=== PATIENT | male | born 1970 | race Caucasian/White ===

== ENCOUNTER 2020-11-19 13:42 | Emergency (ER) | payer BC, OTHER ==
[~2020-11-19 13:42] MED LIST: CIPR500T78 PO; DIPH25CA65 PO; HYDR-91 PO; IBUP-1773 PO; LEVO250T7 PO; MULT-974 PO; NITR-33 PO; OXYC-12 PO; OXYC1CAP3 PO; PHEN200T27 PO; TAMS0.4C9 PO; TMSL.4C PO
--- NOTE | 2020-11-19 14:39 | ED Integumentary General ---
General Chief Complaint: Laceration Stated Complaint: LT ARM/FACE/CHEST LAC Nursing Triage Note: Pt presents with 3 lacerations to his chest from an angle track grinder operator. Pt has a superficial cut to his left arm and superficial cuts to the right side of his face. Bleeding controlled on arrival History of Present Illness Date Seen by Provider: Nov 19, 2020 Time Seen by Provider: 13:50 Initial Comments 50-year-old male presents with 3 lacerations over his chest, a superficial laceration to the right of his face and abrasion to his left arm. Patient was using an angle track grinder operator that got away from him and hit him across the chest wall face and arm. The lacerations on the chest are approximately 2-1/2 cm, 6 and 5 cm. They go through the subcutaneous tissue but not to the muscle or fascia. He suffered no other injuries. He is not sure when his last tetanus was but is greater than 5 years. No other systemic complaints. Allergies and Home Medications Allergies Coded Allergies: No Known Drug Allergies (Unverified , 05/27/13) Home Medications Diphenhydramine Hcl 25 Mg Capsule, 50 MG PO DAILY, (Reported) TAKE 2 (25MG) TABS Levofloxacin 250 Mg Tab, 1 EACH PO DAILY Prescribed by: TACHO WOODRUFF on 08/31/14835 Multivitamin 1 Each Tablet, 1 EACH PO DAILY, (Reported) Oxycodone Hcl/Acetaminophen 1 Each Tablet, 1-2 EACH PO Q4-6H PRN PRN for PAIN, (Reported) PRN PAIN Phenazopyridine Hcl 200 Mg Tablet, 1 EACH PO TID PRN Prescribed by: TACHO WOODRUFF on 08/31/14835 Tamsulosin HCl 0.4 Mg Cap.er.24h, 0.4 MG PO DAILY, (Reported) Patient Home Medication List Home Medication List Reviewed: Yes Review of Systems Review of Systems Constitutional: no symptoms reported EENTM: see HPI Respiratory: no symptoms reported Cardiovascular: no symptoms reported Gastrointestinal: no symptoms reported Genitourinary: no symptoms reported Musculoskeletal: see HPI Skin: see HPI Psychiatric/Neurological: No Symptoms Reported Endocrine: No Symptoms Reported Past Icludms-Oahelp-Hwihwq Hx Patient Social History Tobacco Use?: Yes Tobacco type used: Cigarettes Smoking Status: Current Someday Smoker Substance use?: No Alcohol Use?: No Pt feels they are or have been: No Past Medical History Kidney Stones Arthritis Physical Exam Vital Signs Vital Signs - First Documented 11/19/20 13:47 Pulse 96 Resp 18 B/P (MAP) 146/95 (112) Pulse Ox 98 O2 Delivery Room Air Capillary Refill : Less Than 3 Seconds General Appearance: no apparent distress HEENT: PERRL/EOMI Neck: non-tender, full range of motion Cardiovascular: normal peripheral pulses Respiratory: chest non-tender, lungs clear Gastrointestinal: non tender, soft Extremities: normal range of motion, non-tender, normal inspection 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, alert, normal mood/affect, oriented x 3 Skin: other (Laceration of approximately 2-1/2, 5 and 6 cm on anterior chest wall, abrasion right side of face, abrasion left forearm.) Procedures/Interventions Wound Location: Trunk Wound Length (cm): 6 Wound's Depth, Shape: sub Q Wound Explored: clean Betadine Prep?: Yes Anesthesia: Lidocaine w/ Epi Volume Anesthetic (ccs): 5 Suture: Plain Suture Size: 4-0 Number of Sutures: 5 Layer Closure?: 2 Number Deep Layer Sutures: 1 Sterile Dressing Applied?: Yes Progress Wound was cleaned with a copious amount of irrigation wound was closed with 1 subcutaneous absorbable running suture along with 5 simple cyst sutures. Wound had good approximation. No immediate complications Wound Location: Trunk Wound Length (cm): 5 Wound's Depth, Shape: sub Q Wound Explored: clean Betadine Prep?: Yes Anesthesia: Lidocaine w/ Epi Volume Anesthetic (ccs): 3 Suture: Plain Suture Size: 4-0 Number of Sutures: 5 Layer Closure?: 2 Number Deep Layer Sutures: 1 Sterile Dressing Applied?: Yes Progress Wound was cleaned with copious amount of irrigation, wound was approximated using 1 absorbable subcutaneous suture with 5 additional simple sutures for good approximation. Patient tolerated well with no immediate complications Wound Location: Trunk Wound Length (cm): 2.5 Wound's Depth, Shape: superficial Wound Explored: clean Betadine Prep?: Yes Anesthesia: Lidocaine w/ Epi Volume Anesthetic (ccs): 1 Suture: Plain Suture Size: 4-0 Number of Sutures: 3 Progress Wound was cleaned with a copious amount of sterile saline. Wound was closed with 3 simple sutures with good approximation. Patient tolerated procedure well with no immediate complication Progress/Results/Core Measures Results/Orders My Orders Orders - HUMAMARVEL DO Dipht,Pertuss(Acell),Tet Adult (Boostrix (11/19/20 14:45) Medications Given in ED Current Medications Medications Dose Ordered Sig/Nena Route Start Time Stop Time Status Last Admin Dose Admin Diphtheria/ Tetanus/Acell Pertussis 0.5 ml ONCE ONCE IM 11/19/20 14:45 11/19/20 14:46 DC 11/19/20 14:47 0.5 ML Vital Signs/I&O 11/19/20 11/19/20 13:47 14:52 Pulse 96 96 Resp 18 18 B/P (MAP) 146/95 (112) 146/95 (112) Pulse Ox 98 98 O2 Delivery Room Air Blood Pressure Mean: 112 Departure Impression Primary Impression: Laceration of chest wall Qualified Codes: S21.119A - Laceration without foreign body of unspecified front wall of thorax without penetration into thoracic cavity, initial encounter Disposition: 01 HOME, SELF-CARE Condition: Stable Departure-Patient Inst. Referrals: SELF,WILBER BATISTA (PCP/Family) Primary Care Physician Patient Instructions: Wound Care ED, Laceration Repair With Stitches (DC) Add. Discharge Instructions: Keep wounds clean with warm soapy water You may use a thin coat of Vaseline across your abrasions on your face and arm. Return to the ER or your primary care provider for suture removal in approximately 10 days. All discharge instructions reviewed with patient and/or family. Voiced understanding. MARVEL FINN DO Nov 19, 2020 14:39
[2020-11-19] MEDS ORDERED: TETANUS,DIPTH,PERTUSS P/F (BOOSTRIX) 0.5 ML VIAL IM ONE (14:45)
[2020-11-19 14:52] VITALS: BP 146/95
== END 2020-11-19 15:00 | disposition home or self-care (01) ==
LOC: EDUNIT# 13:42 → ER FS 13:44
DX: S21.119A Laceration without foreign body of unspecified front wall of thorax without penetration into thoracic cavity, initial encounter (principal); S00.81XA Abrasion of other part of head, initial encounter; S50.812A Abrasion of left forearm, initial encounter; F17.210 Nicotine dependence, cigarettes, uncomplicated; Z23 Encounter for immunization; W22.8XXA Striking against or struck by other objects, initial encounter
CPT/HCPCS: 12034; 90715

== ENCOUNTER 2020-12-01 18:09 | Emergency (ER) | payer BC ==
[~2020-12-01] VITALS: Ht 182.8 cm; Wt 102.0 kg
[2020-12-01 18:20] VITALS: BP 164/109
--- NOTE | 2020-12-01 18:23 | ED Suture Removal/Wound Check ---
Suture/Wound Re-check Suture Removal/Wound Recheck : Suture Removal/Wound Recheck: Sutures removed by RN General Appearance: WD/WN, no apparent distress Skin Exam: normal color, warm/dry, other (wound with good granulation and approximation. Sutures intact. developing erythema of margins and beginning to spread in areas. NO wound drainage or abscess) Physical Exam Vital Signs Capillary Refill : General Appearance: WD/WN, no apparent distress Departure Impression Primary Impression: Encounter for removal of sutures Additional Impression: Wound cellulitis Disposition: 01 HOME, SELF-CARE Condition: Stable Departure-Patient Inst. Decision time for Depature: 18:28 Referrals: SELFWILBER MD (PCP) Primary Care Physician Patient Instructions: SUTURE REMOVAL-UNCOMPLICATED, Cellulitis (Skin Infection ), Adult (DC) Add. Discharge Instructions: Allow your chest laceration to DRY OUT. Apply only a very thin amount of POLYSPORIN once daily Take the antibiotic 3 times daily for 1 week. See your doctor in 3 - 4 days if not improving, sooner if worse All discharge instructions reviewed with patient and/or family. Voiced understanding. Scripts Cephalexin (Cephalexin) 500 Mg Tablet 500 MG PO TID, #21 TAB Prov: JOHNNY ORTEGA DO 12/01/20 JOHNNY ORTEGA DO Dec 01, 2020 18:23
[2020-12-01] MEDS ORDERED: CEPH500T PO (18:29)
== END 2020-12-01 18:43 | disposition home or self-care (01) ==
LOC: EDUNIT# 18:09 → ER FS 18:11
DX: Z48.02 Encounter for removal of sutures (principal)

== ENCOUNTER → 2021-09-07 | Outpatient (CLI) | payer BC ==
[~2021-09-07] MED LIST changes: +CEPH500T PO
--- NOTE | 2021-09-07 10:28 | Diagnostic Imaging Report ---
Indication: Right shoulder pain. Time of Exam: 10:01 AM Multiple views of the right shoulder were obtained. Glenohumeral and acromioclavicular alignment are normal. Glenohumeral space is normal. No fracture or dislocation is identified. Impression: No acute bony abnormality is detected. Dictated by: Dictated on workstation # [id number]
== END ==
LOC: RAD FS 09:44
PROVIDERS: ATTEND Nurse Practitioner
DX: M25.511 Pain in right shoulder (principal)
CPT/HCPCS: 73030